=== PATIENT | male | born 1970 | race Caucasian/White ===

== ENCOUNTER 2018-01-29 08:27 | Emergency (ER) | payer OTHER ==
[~2018-01-29] VITALS: Ht 190.5 cm; Wt 110.0 kg
[~2018-01-29 08:27] MED LIST: HYDR12.56 PO
[2018-01-29 08:29] VITALS: BP 183/86; PULSE 79; RESP 16; TEMP 97.5; O2SAT 100
[2018-01-29] MEDS ORDERED: [UNRECOGNIZED DRUG - REMARK] (08:51)
[2018-01-29] MEDS ORDERED: HYDR12.57 PO (08:51)
[2018-01-29] MEDS ORDERED: SODIUM CHLORIDE 0.9% FLUSH 10 ML FLUSH IVF PRN (09:30)
[2018-01-29 09:59] LABS: AUTOMATED NEUTROPHIL # 4.7 TH/MM3 (1.8-7.7); BASOPHIL % 0.6 % (0.0-2.0); EOSINOPHIL # 0.1 TH/MM3 (0-0.4); EOSINOPHIL % 1.8 % (0.0-4.0); HEMOGLOBIN 15.6 GM/DL (13.0-17.0); LYMPH % 25.8 % (9.0-44.0); LYMPHOCYTE # 1.9 TH/MM3 (1.0-4.8); MEAN CELL VOLUME 87.8 FL (80.0-100.0); MEAN CORPUSCULAR HEMOGLOBIN 30.4 PG (27.0-34.0); MEAN CORPUSCULAR HGB CONC 34.7 % (32.0-36.0); MEAN PLATELET VOLUME 8.6 FL (7.0-11.0); MONOCYTE # 0.5 TH/MM3 (0-0.9); NEUT % 64.8 % (16.0-70.0); PLATELET COUNT 226 TH/MM3 (150-450); RED BLOOD COUNT 5.13 MIL/MM3 (4.50-5.90); RED CELL DISTRIBUTION WIDTH 13.4 % (11.6-17.2); WHITE BLOOD COUNT 7.2 TH/MM3 (4.0-11.0)
[2018-01-29] MEDS ORDERED: KETOROLAC TROMETHAMINE 30 MG/ML (IVP) VIAL IV PUSH ONE (10:00)
[2018-01-29 10:12] LABS: D-DIMER LESS THAN 0.19 MG/L FEU (0.00-0.50)
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
[2018-01-29] MEDS ORDERED: IOHEXOL 350 MG/ML 10 ML VIAL (for RAD DIAG) IVCONTRAST ONE (10:15)
[2018-01-29 10:20] LABS: BICARBONATE 26.8 MEQ/L (21.0-32.0); BLOOD UREA NITROGEN 11 MG/DL (7-18); CALCIUM 9.4 MG/DL (8.5-10.1); CHLORIDE 106 MEQ/L (98-107); CREATININE 1.09 MG/DL (0.60-1.30); GLOMERULAR FILTRATION RATE 73 ML/MIN (>89); GLUCOSE,RANDOM 94 MG/DL (74-106); SODIUM (NA) 141 MEQ/L (136-145)
[2018-01-29 10:24] LABS: TROPONIN I LESS THAN 0.02 NG/ML (0.02-0.05)
[2018-01-29 10:26] VITALS: BP 172/91; PULSE 85; RESP 20; O2SAT 100
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
[2018-01-29] MEDS ORDERED: IBUP1TAB7 PO (12:05)
[2018-01-29] MEDS ORDERED: ROBA500T PO (12:05)
--- NOTE | 2018-01-30 23:19 | EKG ---
Date Performed: 01/29/2018 Time Performed: 09:35:36 PTAGE: 47 years EKG: Sinus rhythm NORMAL ECG Since the PREVIOUS TRACING , no significant change noted DOCTOR: Salomón Swift Interpretating Date/Time 01/30/2018 23:19:07
== END 2018-01-29 12:25 | disposition home or self-care (01) ==
LOC: NEPD 08:27
DX: M54.6 Pain in thoracic spine (principal); M25.512 Pain in left shoulder; I10 Essential (primary) hypertension; R20.0 Anesthesia of skin; Z79.899 Other long term (current) drug therapy; Z87.891 Personal history of nicotine dependence
CPT/HCPCS: 71046; 71260; 80048; 82550; 83735; 84484; 85025; 85379; 85610; 85730; 93005; 96374; 99285; J1885; Q9967